=== PATIENT | male | born 1935 | race Caucasian/White ===

== ENCOUNTER 2017-12-24 14:18 | Emergency (ER) | payer OTHER, MEDICARE ==
[~2017-12-24] VITALS: Ht 172.7 cm; Wt 54.5 kg
[~2017-12-24 14:18] MED LIST: AMOX TR-K CLV1 EAC4 PO; ASPIRIN81 M1 PO; B COMPLETE1 EACH PO; BENADRYL25 MG PO; BUSPAR5 MG PO; CALTRATE 6001 TABLET PO; CENTRUM SILVER1 EACH PO; CURCUMIN1 GM MC; FISH OIL OMEGA1 EACH PO; GINKGO BILOBA120 MG PO; GLUCOSAMINE &1 EAC1 PO; HYDROCODON-ACE1 EAC7 PO; LOPRESSOR12.5 MG PO; MOTRIN400 MG PO; MUCINEX FAST-M1 EAC1 PO; NAMENDA XR28 MG PO; NAMENDA10 MG PO; SIMVASTATIN20 MG PO; STOOL SOFTENER100 MG PO; TAMIFLU75 MG PO; VITAMIN B COMP1 EAC1 PO; VITAMIN D1000 UNIT PO; VITAMIN D400 INTUNI PO; ZOCOR40 MG PO; ZOLOFT25 MG PO
[2017-12-24 15:18] LABS: BASOPHIL (%) 0.8 % (0-1); BASOPHIL COUNT 0.1 K/uL (0-0.1); EOSINOPHIL (%) 0.8 % (0-5); EOSINOPHIL COUNT 0.1 K/uL (0-0.3); HEMATOCRIT 38.5 % (38.0-50.0); HEMOGLOBIN 13.6 G/DL (12.5-16.6); IMMATURE GRANULOCYTE (%) 0.4 % (0.0-0.7); LYMPHOCYTE (%) 18.9 % (15-42); LYMPHOCYTE COUNT 1.5 K/uL (1.0-2.8); MCH 32.8 PG (29.0-34.0); MCHC 35.3 G/DL (30.0-36.0); MCV 92.8 FL (86-99); MONOCYTE COUNT 0.6 K/uL (0-0.8); NEUTROPHIL (%) 72.1 % (45-76); NEUTROPHIL COUNT 5.8 K/uL (1.8-6.4); PLATELET COUNT 223 K/uL (156-360); RBC DIS.WIDTH-CV 13.3 % (11.8-14.6); RBC DIS.WIDTH-SD 45.3 % (39-53); RED BLOOD COUNT 4.15 M/uL (4.00-5.50)
[2017-12-24 15:27] LABS: CHLORIDE 105 mEq/L (99-109); POTASSIUM 4.6 mEq/L (3.7-5.4); SODIUM 140 mEq/L (136-147)
[2017-12-24 15:29] LABS: GLUCOSE 97 mg/dL (70-99)
[2017-12-24 15:33] LABS: CREATININE 1.1 mg/dL (0.6-1.3); GFR ESTIMATE (CALCULATED) > 59 mL/min/ (58.99-99999); UREA NITROGEN (BUN) 16 mg/dL (9-23)
[2017-12-24 17:53] VITALS: BP 138/91
== END 2017-12-24 18:28 | disposition home or self-care (01) ==
LOC: EME 14:18
PROVIDERS: Emergency Medicine
PROC: 0HQ3XZZ Repair Left Ear Skin, External Approach (ICD-10-PCS; principal; 2017-12-24)
DX: S01.312A Laceration without foreign body of left ear, initial encounter (principal); S01.81XA Laceration without foreign body of other part of head, initial encounter; S40.012A Contusion of left shoulder, initial encounter; F02.80 Dementia in other diseases classified elsewhere, unspecified severity, without behavioral disturbance, psychotic disturbance, mood disturbance, and anxiety; G30.9 Alzheimer's disease, unspecified; W07.XXXA Fall from chair, initial encounter; I10 Essential (primary) hypertension; Z96.649 Presence of unspecified artificial hip joint; F32.9 Major depressive disorder, single episode, unspecified; Z95.1 Presence of aortocoronary bypass graft; Z88.8 Allergy status to other drugs, medicaments and biological substances; Z88.2 Allergy status to sulfonamides; Z87.891 Personal history of nicotine dependence; Z88.5 Allergy status to narcotic agent
CPT/HCPCS: 70450; 73030; 73060; 80048; 85025; 99281; 99285